=== PATIENT | male | born 1980 | race Two or more races ===

== ENCOUNTER 2021-06-04 11:14 | Emergency (ER) | payer SELFPAY ==
[~2021-06-04] VITALS: Ht 182.9 cm; Wt 107.8 kg
[2021-06-04] MEDS ORDERED: SERO50TA PO ×2 (11:22→13:28)
[2021-06-04 13:44] VITALS: BP 137/75
== END 2021-06-04 13:46 | disposition home or self-care (01) ==
LOC: M ED 11:14
DX: Z76.0 Encounter for issue of repeat prescription (principal); G47.00 Insomnia, unspecified; Z79.899 Other long term (current) drug therapy

== ENCOUNTER 2021-08-03 08:20 | Emergency (ER) | payer SELFPAY ==
[~2021-08-03] VITALS: Ht 185.4 cm; Wt 111.8 kg
[~2021-08-03 08:20] MED LIST: SERO50TA PO
[2021-08-03] MEDS ORDERED: GABA-282 (08:35)
[2021-08-03] MEDS ORDERED: FLUO10CA18 (08:35)
[2021-08-03] MEDS ORDERED: NS 1,000 ML IV ONE (09:50)
[2021-08-03 10:06] LABS: VENOUS BASE EXCESS -1.2 (-2.0-2.0); VENOUS HCO3 23.2 MEQ/L (23.0-27.0); VENOUS PARTIAL PRESSURE CO2 37.8 mmHg (38.0-50.0); VENOUS PH 7.405 UNITS (7.330-7.430); VENOUS STANDARD HCO3 23.3 MEQ/L; VENOUS TOTAL CO2 24.3 MEQ/L (24.0-28.0)
[2021-08-03 10:09] LABS: BASO # 0.1 10^3/uL (0.0-0.2); BASO % 0.4 % (0.0-1.0); EOS # 0.1 10^3/uL (0.0-0.5); EOS % 0.6 % (0.0-3.0); HEMATOCRIT 41.2 % (42.0-52.0); HEMOGLOBIN 13.9 g/dl (13.5-17.5); LYMPH # 1.4 10^3/uL (1.5-5.0); MEAN CORPUSCULAR HEMOGLOBIN 28.8 pg (27.0-33.0); MEAN CORPUSCULAR HGB CONC 33.7 g/dl (32.0-36.5); MEAN CORPUSCULAR VOLUME 85.5 fl (80.0-96.0); MONO # 1.4 10^3/uL (0.0-0.8); MONO % 8.9 % (2.0-8.0); NEUTROPHILS # 12.6 10^3/uL (1.5-8.5); NEUTROPHILS % 80.5 % (36.0-66.0); PLATELET COUNT, AUTOMATED 211 10^3/uL (150-450); RED BLOOD COUNT 4.82 10^6/uL (4.30-6.10); WHITE BLOOD COUNT 15.6 10^3/uL (4.0-10.0)
[2021-08-03] MEDS ORDERED: cefTRIAXone SOD 1 GM in D5W MINI-BAG PLUS 50 ML IV ONE (10:10)
[2021-08-03] MEDS ORDERED: KETOROLAC 30 MG/ML 1ML VIAL IV ONE (10:10)
[2021-08-03 10:45] LABS: HEMOGLOBIN A1c 5.4 %
[2021-08-03 10:57] VITALS: BP 120/64
[2021-08-03 10:58] LABS: ACETONE/KETONE 1.92 MG/DL (<2.81); ALBUMIN 3.4 GM/DL (3.2-5.2); ALT/SGPT 76 U/L (12-78); BILIRUBIN,DIRECT 0.2 MG/DL (0.0-0.2); BILIRUBIN,TOTAL 0.4 MG/DL (0.2-1.0); BLOOD UREA NITROGEN 9 MG/DL (7-18); CALCIUM LEVEL 8.6 MG/DL (8.5-10.1); CARBON DIOXIDE LEVEL 26 MEQ/L (21-32); CHLORIDE LEVEL 104 MEQ/L (98-107); CREATININE FOR GFR 0.88 MG/DL (0.70-1.30); GLOMERULAR FILTRATION RATE > 60.0 (>60); GLUCOSE, FASTING 125 MG/DL (70-100); LIPASE 44 U/L (73-393); POTASSIUM SERUM 3.9 MEQ/L (3.5-5.1); SODIUM LEVEL 136 MEQ/L (136-145); TOTAL PROTEIN 6.6 GM/DL (6.4-8.2)
[2021-08-03 11:08] LABS: AMPHETAMINES LEVEL URINE NEGATIVE (NEGATIVE); BARBITURATES URINE NEGATIVE (NEGATIVE); BENZODIAZEPINES URINE NEGATIVE (NEGATIVE); CANNABINOIDS URINE POSITIVE (NEGATIVE); COCAINE METABOLITE URINE NEGATIVE (NEGATIVE); METHADONE URINE NEGATIVE (NEGATIVE); OPIATES URINE NEGATIVE (NEGATIVE); PHENCYCLIDINE URINE NEGATIVE (NEGATIVE)
[2021-08-03 11:54] LABS: GC DNA AMPLIFICATION NEGATIVE (NEGATIVE)
[2021-08-03] MEDS ORDERED: ONDA4TAB6 PO (12:18)
[2021-08-03] MEDS ORDERED: CEFD300C41 PO (12:18)
== END 2021-08-03 12:41 | disposition home or self-care (01) ==
LOC: M ED 08:20
DX: N39.0 Urinary tract infection, site not specified (principal); E11.9 Type 2 diabetes mellitus without complications; K21.9 Gastro-esophageal reflux disease without esophagitis; G47.00 Insomnia, unspecified; Z87.820 Personal history of traumatic brain injury; F17.200 Nicotine dependence, unspecified, uncomplicated; Z79.899 Other long term (current) drug therapy
CPT/HCPCS: 74176; 80047; 80048; 80076; 80307; 81001; 82010; 82803; 83036; 83605; 83690; 85025; 87040; 87077; 87088; 87186; 87661; 87810; 87850; 96361; 96365; 96366; 96375; 99283; J0696; J1885

== ENCOUNTER 2021-08-14 14:45 | Emergency (ER) | payer SELFPAY ==
[~2021-08-14] VITALS: Ht 185.4 cm; Wt 110.9 kg
[~2021-08-14 14:45] MED LIST changes: +CEFD300C41 PO; +FLUO10CA18; +GABA-282; +ONDA4TAB6 PO
[2021-08-14] MEDS ORDERED: ALPR1TAB3 (14:53)
[2021-08-14 17:25] LABS: BASO # 0.1 10^3/uL (0.0-0.2); BASO % 0.5 % (0.0-1.0); HEMATOCRIT 45.2 % (42.0-52.0); HEMOGLOBIN 14.7 g/dl (13.5-17.5); LYMPH # 3.3 10^3/uL (1.5-5.0); LYMPH % 30.4 % (24.0-44.0); MEAN CORPUSCULAR HEMOGLOBIN 27.7 pg (27.0-33.0); MEAN CORPUSCULAR HGB CONC 32.5 g/dl (32.0-36.5); MEAN CORPUSCULAR VOLUME 85.1 fl (80.0-96.0); MONO # 0.6 10^3/uL (0.0-0.8); MONO % 5.8 % (2.0-8.0); NEUTROPHILS # 6.7 10^3/uL (1.5-8.5); NEUTROPHILS % 62.5 % (36.0-66.0); PLATELET COUNT, AUTOMATED 366 10^3/uL (150-450); RED BLOOD COUNT 5.31 10^6/uL (4.30-6.10); WHITE BLOOD COUNT 10.7 10^3/uL (4.0-10.0)
[2021-08-14 17:57] LABS: ALBUMIN 3.6 GM/DL (3.2-5.2); ALT/SGPT 93 U/L (12-78); BILIRUBIN,TOTAL 0.2 MG/DL (0.2-1.0); BLOOD UREA NITROGEN 13 MG/DL (7-18); CALCIUM LEVEL 9.5 MG/DL (8.5-10.1); CARBON DIOXIDE LEVEL 30 MEQ/L (21-32); CHLORIDE LEVEL 107 MEQ/L (98-107); GLOMERULAR FILTRATION RATE > 60.0 (>60); GLUCOSE, FASTING 92 MG/DL (70-100); POTASSIUM SERUM 4.3 MEQ/L (3.5-5.1); SODIUM LEVEL 141 MEQ/L (136-145); TOTAL PROTEIN 7.6 GM/DL (6.4-8.2)
[2021-08-14 18:53] VITALS: BP 125/84
== END 2021-08-14 18:55 | disposition home or self-care (01) ==
LOC: M ED 14:45
DX: R79.9 Abnormal finding of blood chemistry, unspecified (principal); E11.9 Type 2 diabetes mellitus without complications; Z79.899 Other long term (current) drug therapy; F17.210 Nicotine dependence, cigarettes, uncomplicated

== ENCOUNTER 2023-03-02 19:17 | Observation (INO) | payer OTHER, SELFPAY ==
[~2023-03-02] VITALS: Ht 180.3 cm; Wt 97.5 kg
[~2023-03-02 19:17] MED LIST changes: +ALPR1TAB3; -CEFD300C41 PO; +CEFD300C42 PO
[2023-03-02] MEDS ORDERED: ceFAZolin SOD 1 GM in D5W MINI-BAG PLUS 50 ML IV ONE (19:50)
[2023-03-02 19:54] LABS: VENOUS BASE EXCESS 2.1 (-2.0-2.0); VENOUS HCO3 25.3 MMOL/L (23.0-27.0); VENOUS O2 SATURATION 98.6 % (60.0-80.0); VENOUS PARTIAL PRESSURE CO2 35.3 mmHg (38.0-50.0); VENOUS PARTIAL PRESSURE O2 125.2 mmHg (30.0-50.0); VENOUS PH 7.473 UNITS (7.330-7.430); VENOUS STANDARD HCO3 26.3 MMOL/L; VENOUS TOTAL CO2 26.4 MMOL/L (24.0-28.0)
[2023-03-02 19:56] LABS: BASO # 0.1 10^3/uL (0.0-0.2); BASO % 0.4 % (0.0-1.0); HEMATOCRIT 43.6 % (42.0-52.0); HEMOGLOBIN 14.9 g/dl (13.5-17.5); LYMPH # 2.2 10^3/uL (1.5-5.0); LYMPH % 13.5 % (24.0-44.0); MEAN CORPUSCULAR HEMOGLOBIN 27.8 pg (27.0-33.0); MEAN CORPUSCULAR HGB CONC 34.2 g/dl (32.0-36.5); MEAN CORPUSCULAR VOLUME 81.3 fl (80.0-96.0); MONO # 1.2 10^3/uL (0.0-0.8); MONO % 7.6 % (2.0-8.0); NEUTROPHILS # 12.6 10^3/uL (1.5-8.5); PLATELET COUNT, AUTOMATED 332 10^3/uL (150-450); RED BLOOD COUNT 5.36 10^6/uL (4.30-6.10); WHITE BLOOD COUNT 16.2 10^3/uL (4.0-10.0)
[2023-03-02] MEDS ORDERED: NS 1,000 ML IV ONE (20:00)
[2023-03-02 20:08] LABS: INR 1.04; PROTHROMBIN TIME 13.2 SECONDS (12.5-14.5)
[2023-03-02 20:09] LABS: PARTIAL THROMBOPLASTIN TIME 25.7 SECONDS (24.8-34.2)
[2023-03-02 20:19] LABS: CK-MB VALUE MASS 3.6 NG/ML (<3.6); ETHYL ALCOHOL (ETHANOL) < 0.003 % (0.000-0.010); LIPASE 25 U/L (12-53)
[2023-03-02 20:21] LABS: ALBUMIN 3.9 G/DL (3.2-5.2); ALKALINE PHOSPHATASE 88 U/L (46-116); ALT/SGPT 94 U/L (7.0-40); AMYLASE 22 U/L (30-118); AST/SGOT 37 U/L (<34); BILIRUBIN,DIRECT 0.3 MG/DL (<0.4); BILIRUBIN,TOTAL 0.7 MG/DL (0.3-1.2); BLOOD UREA NITROGEN 20 MG/DL (9-23); CALCIUM LEVEL 9.2 MG/DL (8.5-10.1); CARBON DIOXIDE LEVEL 23 MMOL/L (20-31); CHLORIDE LEVEL 103 MMOL/L (98-107); CPK CREATINE PHOSPHOKINASE 692 U/L (46-171); CREATININE FOR GFR 0.93 MG/DL (0.70-1.30); GLOMERULAR FILTRATION RATE > 60.0 (>60); GLUCOSE, FASTING 94 MG/DL (60-100); MB/CK RELATIVE INDEX 0.52 (< OR =4); POTASSIUM SERUM 4.2 MMOL/L (3.5-5.1); SODIUM LEVEL 138 MMOL/L (136-145); TOTAL PROTEIN 7.3 G/DL (5.7-8.2)
[2023-03-02] MEDS: HYDROMORPHONE HCL 0.5 MG/ 0.5 ML SYRINGE IV PRN ×2 (21:00→21:41)
[2023-03-02] MEDS ORDERED: MORPHINE 2 MG/ML 1ML VIAL IV PRN ×2 (21:50)
[2023-03-02] MEDS ORDERED: MORPHINE 4 MG/ML 1ML VIAL IV PRN (21:50)
[2023-03-02] MEDS ORDERED: ONDANSETRON 4MG 2ML VIAL IV PRN (21:50)
[2023-03-02] MEDS ORDERED: MED REC IN PROGRESS XX SCH (21:55)
[2023-03-02] MEDS ORDERED: HOME MED LIST COMPLETE! XX SCH (22:15)
[2023-03-02 23:27] LABS: HEMATOCRIT 41.2 % (42.0-52.0); HEMOGLOBIN 14.1 g/dl (13.5-17.5); MEAN CORPUSCULAR HEMOGLOBIN 28.1 pg (27.0-33.0); MEAN CORPUSCULAR HGB CONC 34.2 g/dl (32.0-36.5); MEAN CORPUSCULAR VOLUME 82.2 fl (80.0-96.0); PLATELET COUNT, AUTOMATED 314 10^3/uL (150-450); RED BLOOD COUNT 5.01 10^6/uL (4.30-6.10); WHITE BLOOD COUNT 16.2 10^3/uL (4.0-10.0)
[2023-03-02] MEDS: NS 1,000 ML IV SCH (23:30)
[2023-03-02 23:44] VITALS: BP 155/98; TEMP 97.8; O2SAT 96
[2023-03-03] MEDS: KETOROLAC 30 MG/ML 1ML VIAL IV SCH ×3 (00:10→12:45)
[2023-03-03] MEDS: ceFAZolin SOD 1 GM in D5W MINI-BAG PLUS 50 ML IV SCH ×2 (03:41→12:45)
[2023-03-03] MEDS ORDERED: NICOTINE POLACRILEX 2 MG GUM PO PRN (04:15)
[2023-03-03 06:57] VITALS: BP 125/68; TEMP 97.6; O2SAT 96
[2023-03-03] MEDS: NS 1,000 ML IV SCH ×2 (08:57→12:41)
[2023-03-03] MEDS ORDERED: PANTOPRAZOLE 40MG VIAL IV SCH (09:00)
[2023-03-03] MEDS ORDERED: NICOTINE 14 MG/24 HR TRANSDERMAL TD SCH (09:00)
[2023-03-03] MEDS ORDERED: ONDANSETRON 4MG 2ML VIAL As Ordered ONE (09:23)
[2023-03-03] MEDS ORDERED: LIDOCAINE 2% 100MG/5ML SDV (FOR ANES.) As Ordered ONE (09:23)
[2023-03-03] MEDS ORDERED: propofoL 200 MG/20 ML VIAL As Ordered ONE (09:23)
[2023-03-03] MEDS ORDERED: MIDAZOLAM INJ 2MG/2ML VIAL As Ordered ONE (09:25)
[2023-03-03] MEDS ORDERED: fentaNYL 100 MCG/2 ML INJECTION As Ordered ONE (09:26)
[2023-03-03] MEDS ORDERED: ACETAMINOPHEN 1000MG 100ML IV BAG As Ordered ONE (09:49)
[2023-03-03] MEDS ORDERED: dexmedeTOMIDine (4MCG/ML)200MCG/50ML BTL (PRECEDEX) As Ordered ONE (10:09)
[2023-03-03] MEDS ORDERED: CEPH500C PO (10:19)
[2023-03-03] MEDS ORDERED: HYDR-3715 PO (10:19)
[2023-03-03] MEDS ORDERED: fentaNYL 100 MCG/2 ML INJECTION IV PRN (10:20)
[2023-03-03] MEDS ORDERED: MORPHINE 2 MG/ML 1ML VIAL IV PRN (10:20)
[2023-03-03] MEDS ORDERED: oxyCODONE 5MG TAB PO PRN (10:20)
[2023-03-03] MEDS ORDERED: ONDANSETRON 4MG 2ML VIAL IV PRN (10:20)
[2023-03-03 11:00] VITALS: TEMP 97.2
[2023-03-03 11:11] VITALS: BP 104/70; O2SAT 94
== END 2023-03-03 15:45 | disposition home or self-care (01) ==
LOC: EDBD 19:17 → M ED 19:17 → M ED INP 19:18 → M MS5PR 22:55
PROVIDERS: ADMIT Surgery; ATTEND Surgery
DX: S41.111A Laceration without foreign body of right upper arm, initial encounter (principal); X99.1XXA Assault by knife, initial encounter; Y92.89 Other specified places as the place of occurrence of the external cause; Y99.9 Unspecified external cause status; Y93.9 Activity, unspecified
CPT/HCPCS: 13121; 13122; 36415; 73060; 80047; 80048; 80076; 82077; 82150; 82550; 82553; 82803; 83605; 83690; 85025; 85027; 85610; 85730; 86850; 86900; 86901; 87635; 94760; 96365; 96366; 96375; 96376; 99285; C9113; J0131; J0665; J0690; J1100; J1170; J1885; J2250; J2405; J3010

== ENCOUNTER → 2023-03-17 | Day surgery (SDC) | payer OTHER ==
[~2023-03-17] VITALS: Ht 185.4 cm; Wt 99.3 kg
[~2023-03-17] MED LIST changes: +CEFD1CAP9 PO; -CEFD300C42 PO; +CEPH500C PO; +HYDR-3715 PO; +VANCOMYCIN 1000MG/20ML VIAL As Ordered ONE
[2023-03-17 11:00] VITALS: BP 119/73; TEMP 97.8; O2SAT 99
== END | disposition home or self-care (01) ==
LOC: M SDC 10:40
PROVIDERS: ATTEND Orthopaedic Surgery Hand Surgery
DX: Z53.8 Procedure and treatment not carried out for other reasons (principal)

== ENCOUNTER → 2023-05-09 | Outpatient (CLI) | payer OTHER ==
[~2023-05-09] MED LIST changes: -VANCOMYCIN 1000MG/20ML VIAL As Ordered ONE
== END ==
LOC: M SOG 07:50
PROVIDERS: ATTEND Physician Assistant
DX: M25.541 Pain in joints of right hand (principal); M79.89 Other specified soft tissue disorders

== ENCOUNTER → 2023-05-18 | Outpatient (REF) | payer OTHER | LOC: M LAB REF 16:12 | PROVIDERS: ATTEND Physician Assistant | DX: B34.9 Viral infection, unspecified (principal) ==

== ENCOUNTER 2023-08-01 06:31 | Day surgery (SDC) | payer OTHER ==
[~2023-08-01] VITALS: Ht 185.4 cm; Wt 109.8 kg
[~2023-08-01 06:31] MED LIST changes: +METF-838 PO
[2023-08-01] MEDS ORDERED: LR 1,000 ML IV SCH ×2 (06:55→09:20)
[2023-08-01] MEDS ORDERED: DEXTROSE 50% 50ML SYRINGE IV PRN (06:55)
[2023-08-01] MEDS ORDERED: GLUCOSE 4GM CHEW TABLET PO PRN (06:55)
[2023-08-01] MEDS ORDERED: GLUCAGON INJ 1MG VIAL SC PRN (06:55)
[2023-08-01] MEDS ORDERED: INSULIN LISPRO (NovoLOG) PER UNIT SC PRN (06:55)
[2023-08-01] MEDS ORDERED: fentaNYL 100 MCG/2 ML INJECTION As Ordered ONE (08:04)
[2023-08-01] MEDS ORDERED: propofoL 200 MG/20 ML VIAL As Ordered ONE (08:04)
[2023-08-01] MEDS ORDERED: MIDAZOLAM INJ 2MG/2ML VIAL As Ordered ONE (08:05)
[2023-08-01] MEDS ORDERED: LIDOCAINE 2% INJ 100 MG/5 ML SYRINGE As Ordered ONE (08:11)
[2023-08-01] MEDS ORDERED: KETOROLAC 60MG 2ML VIAL As Ordered ONE (08:57)
[2023-08-01] MEDS ORDERED: ONDANSETRON 4MG 2ML VIAL As Ordered ONE (08:57)
[2023-08-01] MEDS ORDERED: fentaNYL 100 MCG/2 ML INJECTION IV PRN (09:20)
[2023-08-01] MEDS: ONDANSETRON 4MG 2ML VIAL IV PRN (09:37)
[2023-08-01] MEDS: HYDROMORPHONE HCL 0.5 MG/ 0.5 ML SYRINGE IV PRN (09:37)
[2023-08-01] MEDS: oxyCODONE 5MG TAB PO PRN (09:49)
[2023-08-01 10:40] VITALS: BP 129/77; TEMP 97.4; O2SAT 96
== END 2023-08-01 10:42 | disposition home or self-care (01) ==
LOC: M SDC 06:31
PROVIDERS: ATTEND Orthopaedic Surgery Hand Surgery
DX: G56.01 Carpal tunnel syndrome, right upper limb (principal); E11.9 Type 2 diabetes mellitus without complications; Z79.84 Long term (current) use of oral hypoglycemic drugs; F17.210 Nicotine dependence, cigarettes, uncomplicated
CPT/HCPCS: 29848; J0665; J1100; J1170; J1885; J2250; J2405; J3010

== ENCOUNTER 2024-05-13 22:03 | Emergency (ER) | payer OTHER ==
[~2024-05-13] VITALS: Ht 182.9 cm; Wt 119.0 kg
[~2024-05-13 22:03] MED LIST changes: +FLUO-290; -FLUO10CA18; +GABA-1172; -GABA-282; +ONDA-282 PO; -ONDA4TAB6 PO
[2024-05-13 22:23] VITALS: BP 159/86; TEMP 97.6; O2SAT 97
[2024-05-13 23:15] LABS: HEMATOCRIT 43.3 % (42.0-52.0); HEMOGLOBIN 14.5 g/dl (13.5-17.5); MEAN CORPUSCULAR HEMOGLOBIN 28.3 pg (27.0-33.0); MEAN CORPUSCULAR HGB CONC 33.5 g/dl (32.0-36.5); MEAN CORPUSCULAR VOLUME 84.6 fl (80.0-96.0); PLATELET COUNT, AUTOMATED 241 10^3/uL (150-450); RED BLOOD COUNT 5.12 10^6/uL (4.30-6.10); WHITE BLOOD COUNT 11.9 10^3/uL (4.0-10.0)
[2024-05-13 23:34] LABS: AMPHETAMINES LEVEL URINE NEGATIVE (NEGATIVE); BARBITURATES URINE NEGATIVE (NEGATIVE); BENZODIAZEPINES URINE NEGATIVE (NEGATIVE); METHADONE URINE NEGATIVE (NEGATIVE); OPIATES URINE NEGATIVE (NEGATIVE); PHENCYCLIDINE URINE NEGATIVE (NEGATIVE)
[2024-05-13 23:38] LABS: CANNABINOIDS URINE POSITIVE (NEGATIVE); COCAINE METABOLITE URINE POSITIVE (NEGATIVE)
[2024-05-13 23:41] LABS: ETHYL ALCOHOL (ETHANOL) 0.003 % (0.000-0.010)
[2024-05-13 23:43] LABS: ALBUMIN 3.7 G/DL (3.2-5.2); ALKALINE PHOSPHATASE 61 U/L (40-129); ALT/SGPT 81 U/L (7.0-40); AST/SGOT 29 U/L (<34); BILIRUBIN,DIRECT < 0.1 MG/DL (<0.4); BILIRUBIN,TOTAL 0.2 MG/DL (0.3-1.2); BLOOD UREA NITROGEN 24 MG/DL (9-23); CALCIUM LEVEL 9.2 MG/DL (8.5-10.1); CARBON DIOXIDE LEVEL 27 MMOL/L (20-31); CHLORIDE LEVEL 107 MMOL/L (98-107); CREATININE FOR GFR 0.79 MG/DL (0.70-1.30); GLOMERULAR FILTRATION RATE > 60.0 (>60); GLUCOSE, FASTING 122 MG/DL (60-100); POTASSIUM SERUM 4.1 MMOL/L (3.5-5.1); SALICYLATE LEVEL < 3.0 MG/DL (<30); SODIUM LEVEL 142 MMOL/L (136-145)
[2024-05-13 23:46] LABS: THYROID STIMULATING HORMONE 1.661 uIU/ML (0.55-4.78)
[2024-05-14] MEDS: risperiDONE 0.5 MG TAB PO ONE (00:25)
== END 2024-05-14 01:21 | disposition home or self-care (01) ==
LOC: M ED 22:03
DX: F43.0 Acute stress reaction (principal); F20.9 Schizophrenia, unspecified; F17.200 Nicotine dependence, unspecified, uncomplicated; F12.10 Cannabis abuse, uncomplicated; F10.10 Alcohol abuse, uncomplicated; Z79.4 Long term (current) use of insulin